=== PATIENT | male | born 2000 | race Caucasian/White ===

== ENCOUNTER 2025-03-22 03:20 | Emergency (ER) | payer BC ==
[2025-03-22] MEDS: Diphtheria,Pertussis(Acell),Tetanus Vaccine 0.5 ML Syringe IM ONE (03:40)
== END 2025-03-22 03:43 | disposition home or self-care (01) ==
LOC: FB.ED 03:20
DX: S30.811A Abrasion of abdominal wall, initial encounter (principal); Z79.899 Other long term (current) drug therapy; Z23 Encounter for immunization; W01.198A Fall on same level from slipping, tripping and stumbling with subsequent striking against other object, initial encounter
CPT/HCPCS: 90471; 90715; 99282-25